=== PATIENT | male | born 1985 | race Caucasian/White ===

== ENCOUNTER 2016-09-15 11:28 | Emergency (ER) | payer BC ==
--- NOTE | ~2016-09-15 | CT4 ---
[facility] A Service of [facility] RADIOLOGY TEXT RESULTS PATIENT: AMANDA BRAUN LOCATION: SED : 89 UNIT #: [id number] AGE: [address]: Deuce Griffith MD SEX: M ORDER DR: [id number] [address] [address] [id number] MR#: [id number] #: [id number] NAME: AMANDA BRAUN : 1985 SEX: M STUDY DATE/TIME: 09/15/2016 12:17 UNIT: SED ROOM: STUDY DESCRIPTION: CT Abd and Pelv Wo Cont Attending Physician: Deuce Griffith M.D. Ordering Physician: Deuce Griffith M.D. MEDICAL IMAGING REPORT This report is preliminary unless electronic signature is present. EXAM CT abdomen and pelvis without IV contrast COMPARISON October 17, 2011. INDICATIONS 30-year-old male with left flank abdominal pain, emesis and clammy sensation today. TECHNIQUE Axial CT imaging of the pelvis was performed IV contrast. Lack of IV contrast and evaluation of adenopathy, vasculature and viscera. Coronal and sagittal reformats were constructed. This CT exam was performed with one or more of the following radiation dose reduction techniques: automatic exposure control, adjustment of mA and/or kV according to patient size, and iterative reconstruction. FINDINGS Small posterior protrusion L5-S1. No acute fractures or suspicious osseous lesions. No acute findings in the imaged lower chest. Unenhanced liver, gallbladder, pancreas, spleen, adrenal glands unremarkable. There are non-obstructive bilateral renal calculi. There is no hydronephrosis or hydroureter. There is no ureteral calculus. However within the dependent left urinary bladder, there is a calculus most consistent with passed calculus from the left ureter, just recently, measuring up to 2 mm. Prostate gland is unremarkable. Appendix is normal. There is fecalization of contents in the terminal ileum suggestive of stasis. Abdominal aorta is normal course and caliber. No free fluid or pneumoperitoneum. No adenopathy. [facility] A Service of [facility] RADIOLOGY TEXT RESULTS PATIENT: AMANDA BRAUN LOCATION: [facility] : [birth year] UNIT #: [id number] AGE: [address]: Deuce Griffith MD SEX: M ORDER DR: IMPRESSION 1. 2 mm calculus in the dependent left urinary bladder, most consistent with recently passed calculus from the left ureter. There are currently no obstructive calculi. There are only non-obstructive calculi in both kidneys. 2. Small posterior disc protrusion at L5-S1. 1. 1. Dictated by... Diego Mccabe M.D. THIS IS AN ELECTRONICALLY VERIFIED REPORT Diego Mccabe M.D. at 09/23/2016 7:28 AM BLM/pcl TD: 09/15/2016 15:34 JOB #: [id number] MEDICAL IMAGING REPORT Page 1 of 1
[~2016-09-15 11:28] MED LIST: FLOMAX0.4 M1 PO; LORTAB 5/500 TA1 TA1 PO; NEXIUM PO; ROBAXIN500 MG PO; VOLTAREN75 MG PO; ZOFRAN ODT4 MG PO
[2016-09-15] MEDS ORDERED: NO MEDICATIONS (11:30)
[2016-09-15 12:02] LABS: BASOPHIL# 0.1 X10e3 (0-0.3); BASOPHIL% 0.9 % (0-2.5); EOSINOPHIL# 0.2 X10e3 (0-0.7); EOSINOPHIL% 2.7 % (0.0-7.0); HEMATOCRIT 45.5 % (38.0-50.0); HEMOGLOBIN 15.8 gm/dL (13.0-16.0); LYMPHOCYTE# 2.9 X10e3 (1.0-3.5); LYMPHOCYTE% 32.6 % (17.0-45.0); MEAN CELL VOLUME 83.4 FL (83-96); MEAN CORPUSCULAR HEMOGLOBIN 28.9 PG (28-34); MEAN CORPUSCULAR HGB CONC 34.7 g/dL (30-36); MONOCYTE# 0.6 X10e3 (0-1.0); MONOCYTE% 7.3 % (3.0-12.0); NEUTROPHIL# 5.1 X10e3 (1.5-7.1); NEUTROPHIL% 56.5 % (40-75); PLATELET COUNT 155 X10e3 (140-420); RED BLOOD COUNT 5.46 X10e (3.90-5.60); RED CELL DISTRIBUTION WIDTH 13.1 % (11.0-15.5); WHITE BLOOD COUNT 8.9 X10e3 (4.0-10.5)
[2016-09-15 12:11] LABS: DIFF IND NO
[2016-09-15 12:23] LABS: ALBUMIN SERUM 4.3 g/dL (3.5-5.0); BILIRUBIN, DIRECT 0.1 mg/dL (0.0-0.2); BILIRUBIN,INDIRECT 0.3 mg/dL (0.0-0.9); BILIRUBIN,TOTAL 0.4 mg/dL (0.2-2.0); BUN/CREATININE RATIO 18.88; CALCIUM SERUM 9.8 mg/dL (8.4-10.2); CREATININE SERUM 0.9 mg/dL (0.6-1.4); GLOM FILT RATE Estimated 115.8 mL/min (>60); POTASSIUM 3.6 mmol/L (3.5-5.1); PROTEIN TOTAL SERUM 7.2 g/dL (6.0-8.3)
[2016-09-15 13:39] LABS: URINE SOURCE CLEAN CATCH
[2016-09-15 13:41] LABS: URINE APPEARANCE CLEAR; URINE BILIRUBIN NEG (NEG); URINE BLOOD 3+ (NEG); URINE COLOR YELLOW; URINE GLUCOSE NEG (NORM); URINE KETONE NEG (NEG); URINE LEUKOCYTE ESTERASE NEG (NEG); URINE NITRATE NEG (NEG); URINE PH 6.5 (5-8); URINE PROTEIN TRACE (NEG)
[2016-09-15 13:45] LABS: MICRO INDICATED? YES
[2016-09-15 13:51] LABS: CULTURE INDICATED? NO; URINE BACTERIA NEG (NEG); URINE RBC 50-100 /[HPF] (0-2); URINE WBC 0-2 /[HPF] (0-5)
== END 2016-09-15 14:12 | disposition home or self-care (01) ==
LOC: SED 11:28
PROVIDERS: Emergency Medicine
DX: N20.0 Calculus of kidney (principal); F17.210 Nicotine dependence, cigarettes, uncomplicated
CPT/HCPCS: 36415; 74176; 80048; 80076; 81003; 83690; 85025; 96374; 96375; 99284; J1170; J1885; J2405